=== PATIENT | female | born 1985 | race Caucasian/White ===

== ENCOUNTER → 2019-04-15 15:10 | Outpatient (BNVA) | payer MEDICAID, SELFPAY | PROVIDERS: Family Provider Family Medicine; PCP Obstetrics & Gynecology; Visit Provider Obstetrics & Gynecology | DX: Z30.46 Encounter for surveillance of implantable subdermal contraceptive (principal); Z30.9 Encounter for contraceptive management, unspecified | CPT/HCPCS: 81025 ==